=== PATIENT | male | born 1935 | race Caucasian/White ===

== ENCOUNTER 2017-08-16 16:22 | Observation (INO) | payer MEDICARE, OTHER ==
[~2017-08-16] VITALS: Ht 175.3 cm; Wt 77.3 kg
[2017-08-16] MEDS ORDERED: ipratropium/albuterol 3ml nebule NEB ONE (16:35)
[2017-08-16] MEDS ORDERED: OXYB5TAB11 PO (16:38)
[2017-08-16] MEDS ORDERED: LANTUS SQ (16:38)
[2017-08-16] MEDS ORDERED: HYDR-565 PO (16:38)
[2017-08-16] MEDS ORDERED: SERT100T PO (16:38)
[2017-08-16] MEDS ORDERED: GABA600T2 PO (16:38)
[2017-08-16 17:05] LABS: BASOPHILS % (AUTO) 0.3 % (0-1); EOSINOPHILS # (AUTO) 0.1 X10'3 (0-0.9); EOSINOPHILS % (AUTO) 1.6 % (0-6); HEMATOCRIT 31.4 % (42.0-52.0); HEMOGLOBIN 10.6 g/dl (14.0-17.9); LYMPHOCYTES # (AUTO) 1.4 X10'3 (1.1-4.8); LYMPHOCYTES % (AUTO) 17.3 % (21-51); MEAN CORPUSCULAR HEMOGLOBIN 28.7 PG (27.0-31.0); MEAN CORPUSCULAR HGB CONC 33.6 % (33.0-36.5); MEAN CORPUSCULAR VOLUME 85.5 FL (78-98); MEAN PLATELET VOLUME 8.4 FL (7.4-10.4); MONOCYTES # (AUTO) 0.4 X10'3 (0-0.9); MONOCYTES % (AUTO) 4.4 % (2-12); NEUTROPHILS # (AUTO) 6.2 X10'3 (1.8-7.7); NEUTROPHILS % (AUTO) 76.4 % (42-75); PLATELET COUNT 247 X10'3 (140-440); RED BLOOD COUNT 3.68 X10'6 (4.70-6.10); RED CELL DISTRIBUTION WIDTH 14.1 % (11.5-14.5); WHITE BLOOD COUNT 8.1 X10'3 (4.5-11.0)
[2017-08-16 17:18] LABS: PARTIAL THROMBOPLASTIN TIME 29 SECONDS (22-32); PROTHROMBIN TIME 10.4 SECONDS (9.0-12.0)
[2017-08-16 17:35] LABS: ALANINE AMINOTRANSFERASE 16 U/L (12-78); ALBUMIN 2.1 G/DL (3.4-5.0); ALBUMIN/GLOBULIN RATIO 0.3 (1.1-1.5); ALKALINE PHOSPHATASE 68 IU/L (46-116); ANION GAP 6 (8-16); ASPARTATE AMINO TRANSFERASE 20 U/L (10-37); BILIRUBIN,TOTAL 0.2 MG/DL (0.1-1.0); BLOOD UREA NITROGEN 12 MG/DL (7-18); BUN/CREATININE RATIO 10.9 (5.4-32.0); CALCIUM 8.8 MG/DL (8.5-10.1); CHLORIDE 101 MMOL/L (99-107); GLUCOSE 95 MG/DL (70-104); MAGNESIUM 1.5 MG/DL (1.5-2.4); POTASSIUM 4.2 MMOL/L (3.5-5.1); SODIUM 136 MMOL/L (135-145); TOTAL CARBON DIOXIDE 29.3 MMOL/L (24-32); TOTAL PROTEIN 8.3 G/DL (6.4-8.2); eGFR 64 ML/MIN
[2017-08-16 18:31] LABS: D-DIMER 0.99 MG/L FEU (0-0.50)
[2017-08-16] MEDS ORDERED: iohexol 350MG/ML 100ml bottle IV ONE (19:46)
[2017-08-16] MEDS ORDERED: dextrose 50%-water 50ml dispensing syringe IV ONE (20:20)
[2017-08-16 20:59] LABS: CLARITY,URINE CLEAR (Clear); COLOR,URINE YELLOW (Yellow); GLUCOSE, URINE NEGATIVE (Neg); KETONES,URINE NEGATIVE (Neg); LEUKOCYTE ESTERASE ,URINE NEGATIVE (Neg); NITRITES, URINE NEGATIVE (Neg); OCCULT BLOOD,URINE NEGATIVE (Neg); PH,URINE 6.5 (4.8-8.0); PROTEIN,URINE TRACE mg/dl (Neg); UROBILINOGEN,URINE 0.2 E.U/dL (0.2-1.0)
[2017-08-16 21:01] LABS: UA COLLECTION TYPE VOIDED
[2017-08-16 21:09] LABS: BACTERIA,URINE NONE SEEN /HPF (Neg); MUCUS STRANDS NONE SEEN /LPF (Neg); RBC,URINE 0-2 /HPF (0-2); SQUAMOUS EPITHELIAL CELL,UR FEW /LPF (FEW); WBC,URINE NONE SEEN /HPF (0-4)
[2017-08-16] MEDS ORDERED: dextrose ORAL solution 15 GM/59 ML bottle PO PRN ×2 (21:25)
[2017-08-16] MEDS ORDERED: dextrose 50%-water 50ml dispensing syringe IV PRN ×2 (21:25)
[2017-08-16] MEDS ORDERED: ondansetron/PF 4mg/2ml inj IV PRN (21:25)
[2017-08-16] MEDS ORDERED: magnesium hydroxide 30ml (MOM) UD suspension PO PRN (21:25)
[2017-08-16] MEDS ORDERED: acetaminophen 325mg tablet PO PRN (21:25)
[2017-08-16] MEDS ORDERED: mag hydrox/Alum hydrox/simeth 30ml oral suspension PO PRN (21:25)
[2017-08-16] MEDS ORDERED: glucagon, human recombinant 1mg kit SUBCUT PRN (21:25)
[2017-08-16] MEDS ORDERED: MESSAGE TO PHARMACY PO ONE (21:25)
[2017-08-16] MEDS ORDERED: GABA-581 PO (23:00)
[2017-08-17] MEDS: HYDROcodone/acetaminophen 10/325mg tab PO PRN ×4 (04:27→19:40)
[2017-08-17] MEDS: sertraline 50mg tablet PO SCH ×2 (07:31→19:41)
[2017-08-17 07:34] VITALS: BP 118/73
[2017-08-17 12:24] VITALS: BP 136/69
[2017-08-17 20:00] VITALS: BP 140/66
[2017-08-18] VITALS: BP 137/67
[2017-08-18] MEDS: HYDROcodone/acetaminophen 10/325mg tab PO PRN ×3 (00:49→11:50)
[2017-08-18] MEDS: sertraline 50mg tablet PO SCH (07:37)
[2017-08-18 08:00] VITALS: BP 150/78
[2017-08-18 11:00] VITALS: BP 145/75
[2017-08-18 12:52] VITALS: BP 130/70
== END 2017-08-18 15:35 | disposition home health service (06) ==
LOC: ER 16:23 → ED HOLD 21:22 → INTOOBSV 21:22 → SUR 3N 23:09
PROVIDERS: ADMIT Internal Medicine; ATTEND Family Medicine
DX: E11.649 Type 2 diabetes mellitus with hypoglycemia without coma (principal); E11.42 Type 2 diabetes mellitus with diabetic polyneuropathy; I10 Essential (primary) hypertension; D64.9 Anemia, unspecified; R32 Unspecified urinary incontinence; Z79.4 Long term (current) use of insulin; F32.9 Major depressive disorder, single episode, unspecified; I25.10 Atherosclerotic heart disease of native coronary artery without angina pectoris; Z91.81 History of falling; Z79.899 Other long term (current) drug therapy
CPT/HCPCS: 36415; 71045; 71275; 80053; 81001; 82948; 83036; 83735; 83880; 84484; 85025; 85379; 85610; 85730; 87070; 93005; 94640; 94760; 96374; 97110; 97116; 97161; 97530; 99285; G0378; J7030; Q9967

== ENCOUNTER 2018-08-13 20:55 | Inpatient (IN) | payer MEDICARE, BC | END 2018-08-19 17:10 | LOC: ED HOLD 23:53 → ER 20:55 → ORTHO 4S 08-14 01:06 | PROC: 0QS606Z Reposition Right Upper Femur with Intramedullary Internal Fixation Device, Open Approach (ICD-10-PCS; principal; 2018-08-14 12:31) | DX: S72.141A Displaced intertrochanteric fracture of right femur, initial encounter for closed fracture (principal); E43 Unspecified severe protein-calorie malnutrition; E11.9 Type 2 diabetes mellitus without complications ==

== ENCOUNTER 2018-08-31 13:04 | Inpatient (IN) | payer MEDICARE, BC | END 2018-09-03 13:15 | LOC: ER 13:04 → ED HOLD 15:28 → ORTHO 4S 23:15 | PROC: 0DJ08ZZ Inspection of Upper Intestinal Tract, Via Natural or Artificial Opening Endoscopic (ICD-10-PCS; principal; ~2018-08-31) | DX: A41.9 Sepsis, unspecified organism (principal); K22.6 Gastro-esophageal laceration-hemorrhage syndrome; J69.0 Pneumonitis due to inhalation of food and vomit; J96.01 Acute respiratory failure with hypoxia; L03.115 Cellulitis of right lower limb; K92.2 Gastrointestinal hemorrhage, unspecified; I47.1 Supraventricular tachycardia; D62 Acute posthemorrhagic anemia ==

== ENCOUNTER 2018-09-03 23:51 | Inpatient (IN) | payer MEDICARE, BC | END 2018-09-16 17:53 | disposition E | LOC: ER 23:51 → ED HOLD 09-04 01:32 → ICU 2S 09-05 14:06 → PCU 3S 09-04 08:00 | PROC: 5A1955Z Respiratory Ventilation, Greater than 96 Consecutive Hours (ICD-10-PCS; principal; ~2018-09-03) | PROC: 05H533Z Insertion of Infusion Device into Right Subclavian Vein, Percutaneous Approach (ICD-10-PCS; ~2018-09-03) | DX: J69.0 Pneumonitis due to inhalation of food and vomit (principal); I21.4 Non-ST elevation (NSTEMI) myocardial infarction; J96.00 Acute respiratory failure, unspecified whether with hypoxia or hypercapnia; J81.0 Acute pulmonary edema; E43 Unspecified severe protein-calorie malnutrition; R65.21 Severe sepsis with septic shock; E87.6 Hypokalemia; R47.02 Dysphasia; B96.89 Other specified bacterial agents as the cause of diseases classified elsewhere; Y95 Nosocomial condition ==